=== PATIENT | male | born 1990 | race Caucasian/White ===

== ENCOUNTER 2017-04-27 08:21 | Emergency (ER) | payer OTHER ==
--- NOTE | 2017-04-27 08:33 | UC ---
HPI Febrile Illness - HPI Summary HPI Summary: 26 Y/O male presents with C/O sore throat, fever, headache and sore throat that began on 04/16/17. Denies nausea, vomiting or dyspnea. States fever at home 101. Blood pressure elevated during this visit without history of HTN, most likely due to current illness. Medications and past medical history reviewed at this visit. - History of Current Complaint Hx Obtained From: Patient Onset/Duration: Started Days Ago, Still Present Timing: Intermittent, Lasting Hours Temperature: 97.7 F Initial Severity: Moderate Current Severity: None Pain Intensity: 7 Pain Scale Used: 0-10 Numeric Aggravating Factors: Nothing Associated Signs and Symptoms: Arthralgia, Chills, Cough, Headache, Sore Throat - Risk Factors Pseudomonas Risk Factors: Negative Serious Bacterial Infection Risk Factors: Negative <Marie Wade - Last Filed: 04/27/17 08:56> <Mari Thompson - Last Filed: 04/27/17 10:04> - History of Current Complaint Chief Complaint: UCGeneralIllness Time Seen by Provider: 04/27/17 08:27 - Allergy/Home Medications Allergies/Adverse Reactions: Allergies Allergy/AdvReac Type Severity Reaction Status Date / Time No Known Allergies Allergy Verified 04/27/17 08:28 Home Medications: Home Medications NK [No Home Medications Reported] 04/27/17 [History Confirmed 04/27/17] PMH/Surg Hx/FS Hx/Imm Hx Previously Healthy: Yes - Surgical History Surgical History: None - Social History Alcohol Use: Occasionally Substance Use Type: None Smoking Status (MU): Never Smoked Tobacco <Marie Wade - Last Filed: 04/27/17 08:56> Review of Systems Constitutional: Fever, Chills Skin: Negative Eyes: Negative ENT: Negative Respiratory: Cough Cardiovascular: Negative Gastrointestinal: Negative Genitourinary: Negative Motor: Negative Neurovascular: Negative Musculoskeletal: Arthralgia Neurological: Negative Psychological: Negative Is Patient Immunocompromised?: No All Other Systems Reviewed And Are Negative: Yes <Marie Wade - Last Filed: 04/27/17 08:56> Physical Exam Triage Information Reviewed: Yes Appearance: Well-Appearing Vital Signs: Initial Vital Signs Temp 97.7 F 04/27/17 08:23 Pulse 78 04/27/17 08:23 Resp 18 04/27/17 08:23 BP 149/82 04/27/17 08:23 Pulse Ox 99 04/27/17 08:23 Vital Signs Reviewed: Yes Eye Exam: Normal Eyes: Positive: Conjunctiva Clear ENT: Positive: Pharyngeal erythema Neck exam: Normal Neck: Positive: No Lymphadenopathy Respiratory Exam: Normal Respiratory: Positive: Lungs clear, Normal breath sounds, No respiratory distress Cardiovascular Exam: Normal Cardiovascular: Positive: RRR Abdominal Exam: Normal Abdomen Description: Positive: Nontender, Soft Bowel Sounds: Positive: Present Musculoskeletal Exam: Normal Musculoskeletal: Positive: ROM Intact Neurological Exam: Normal Neurological: Positive: Alert Psychological Exam: Normal Skin Exam: Normal <Marie Wade - Last Filed: 04/27/17 08:56> Vital Signs: Initial Vital Signs Temp 97.7 F 04/27/17 08:23 Pulse 78 04/27/17 08:23 Resp 18 04/27/17 08:23 BP 149/82 04/27/17 08:23 Pulse Ox 99 04/27/17 08:23 <Mari Thompson - Last Filed: 04/27/17 10:04> Course/Dx - Febrile Illness Differential Diagnoses: Fever of Unknown Origin, Viremia - Diagnoses Clinic Provider Diagnoses: Viral illness <Marie Wade - Last Filed: 04/27/17 08:56> Discharge <Marie Wade - Last Filed: 04/27/17 08:56> <Mari Thompson - Last Filed: 04/27/17 10:04> - Discharge Plan Condition: Stable Disposition: HOME Patient Education Materials: Viral Syndrome (ED) Referrals: No Primary Care Phys,NOPCP [Primary Care Provider] - Additional Instructions: Your flu and strep tests were negative. You likely have a viral illness which will resolve on its own in 7-10days. Please follow up with your [facility] to recheck your blood pressure. Return to urgent care as needed if symptoms do not improve. I have provided you with the Physician referral center information if you would like to find a primary medical provider in this area. Attestation Statement User Type: Provider - I was available for consult. This patient was seen by the [facility]. The patient was not presented to, seen by, or examined by me. -Barbie <Mari Thompson - Last Filed: 04/27/17 10:04>
== END 2017-04-27 09:28 | disposition home or self-care (01) ==
LOC: UCEAST 08:21
DX: B34.9 Viral infection, unspecified (principal)
CPT/HCPCS: 87502; 87651; 99202; G0463